=== PATIENT | female | born 1950 | race Caucasian/White ===

== ENCOUNTER 2019-11-16 17:39 | Emergency (ER) | payer MEDICARE, SELFPAY ==
[2019-11-16 17:41] VITALS: BP 170/78; PULSE 78; RESP 16; TEMP 36.3; O2SAT 96; BMI 30.7
--- NOTE | 2019-11-16 17:58 | EKG12_ITS ---
Test Reason : BACK PAIN Blood Pressure : / mmHG Vent. Rate : 068 BPM Atrial Rate : 068 BPM P-R Int : 174 ms QRS Dur : 082 ms QT Int : 408 ms P-R-T Axes : 056 -08 028 degrees QTc Int : 433 ms Normal sinus rhythm Normal ECG Confirmed by CHAPIN VEGA ([id number]), visual effects editor PAO KIRKLAND ([id number]) on 11/19/2019 2:51:26 PM Referred By: ANNMARIE Confirmed By:CHAPIN VEGA
--- NOTE | 2019-11-16 17:59 | ED.VIS.GEN ---
History of Present Illness Chief Complaint: Back Informant: Patient Onset: Days Context: Gradual Onset Timing: Intermittent Narrative: Patient is a 69-year-old female status post cholecystectomy presenting with vague lower back pain. Patient states she has bilateral lower flank pain that initially started 3 days ago. She noticed it when she was lying down to sleep. Over the past 2 nights it woke her up from sleep. She describes it more as a dull ache. She states it does not radiate. She never had pain like this before. She notes that she is had some discomfort with eating but denies any nausea or vomiting. Her bowel movements been normal. She denies any new physical activities or strains to her back. She states she does have a history of sciatica of the right leg but this feels very different. She denies any urinary symptoms. She denies any bowel or bladder incontinence or saddle anesthesia. She denies any fever or chills. She does not take anything for the pain. Patient is concerned she might have diverticulitis or something wrong with her kidneys which is why she came to the emergency room today. Past Medical History - Allergies and Home Meds Allergies/Adverse Reactions: Allergies Penicillins [PCN] Allergy (Verified 11/16/19 17:40) Hives Sulfa (Sulfonamide Antibiotics) Allergy (Verified 11/16/19 17:40) Aliay Primary Care Physician: Champ Elizalde [Primary Care Provider] - Past Medical History: - - Sciatica Surgical History: cholecystectomy Smoking Status: Never smoker Review of Systems General: Denies: Chills, Fever, Sweats Eyes: Denies: Visual changes - bilaterally, Diplopia ENT: Denies: Rhinorrhea, Sore throat Cardiovascular: Denies: Chest pain, Palpitations Respiratory: Denies: Dyspnea, Cough, Dyspnea on exertion Gastrointestinal: Denies: Abdominal pain, Nausea, Vomiting, Diarrhea, Melena, Hematochezia Genitourinary: Denies: Dysuria, Hematuria, Frequency Musculoskeletal: Reports: Back pain. Denies: Extremity Pain Skin: Denies: Rash, Wounds Neurological: Denies: Headache, Weakness, Numbness Physical Exam Vital Signs/Narrative: Vital Signs Temp Pulse Resp BP Pulse Ox 11/16/19 17:41 97.3 F L 78 16 170/78 H 96 Inital Vital Signs reviewed: Yes General: Well nourished, Well developed, No Acute Distress Head: Normocephalic, Atraumatic Eyes: Perrl, EOMI ENT: Moist mucous membranes, No rhinorrhea Neck: Supple, Nontender Cardiovascular: Regular rate, Regular rhythm, No murmurs Respiratory: No distress, CTA bilaterally, Chest nontender Abdomen: Soft, Nondistended, Normal bowel sounds, Tender - Right upper quadrant. Negative for: Guarding, Rebound tenderness Back: Nontender, Normal Inspection, - - Tenderness palpation bilateral flanks, below the CVA area. Negative straight leg test bilaterally. Negative for: CVA tenderness, Spinal tenderness Extremities: Nontender, No edema. Negative for: Tenderness, Edema Skin: Normal color, No rash Neurological: Alert, Oriented x3, Cranial nerves II-XII grossly intact, Normal Strength, Normal Sensation Psychological: Normal affect, Normal Mood Diagnostic/Tx/Re-eval Clinical Impression(s) from Imaging Studies Abdomen/Pelvis CT 11/16/19 18:34 IMPRESSION: Minor diverticular changes of the descending and sigmoid colon without evidence for acute diverticulitis Postop changes status post cholecystectomy No acute abnormalities Electronically Signed: Julian Villegas MD at 19:32 EDT , Service support , Laboratory Data 11/16/19 11/16/19 11/16/19 18:05 18:05 18:10 WBC 9.4 RBC 4.82 Hgb 13.5 Hct 40.6 MCV 84.2 MCH 28.0 MCHC 33.3 RDW Std Deviation 37.4 RDW Coeff of Meng 12.4 Plt Count 233 MPV 10.5 Immature Gran % (Auto) 0.300 Neut % (Auto) 66.4 Lymph % (Auto) 21.8 [place] % (Auto) 8.4 Eos % (Auto) 2.3 Baso % (Auto) 0.8 Absolute Neuts (auto) 6.3 Absolute Lymphs (auto) 2.06 Nucleated RBC % 0 Sodium 141 Potassium 3.9 Chloride 109 H Carbon Dioxide 27.0 Anion Gap 5 BUN 23 H Creatinine 0.97 Estim Creat Clear Calc 51.24 Est GFR (MDRD) Af Amer 73 Est GFR (MDRD) Non-Af 60 BUN/Creatinine Ratio 23.6 H Glucose 137 H Calcium 8.8 Total Bilirubin 0.50 AST 8 L ALT 27 Alkaline Phosphatase 71 Troponin I < 0.015 Total Protein 7.2 Albumin 3.8 Globulin 3.4 Albumin/Globulin Ratio 1.1 Lipase 83 Urine Color Straw Urine Clarity Clear Urine pH 6.0 Ur Specific [place] 1.010 Urine Protein Negative Urine Glucose (UA) Normal Urine Ketones Negative Urine Occult Blood Negative Urine Nitrite Negative Urine Bilirubin Negative Urine Urobilinogen Normal Ur Leukocyte Esterase 500 H Urine RBC 0 SEEN Urine WBC 0-5 SEEN Ur Squamous Epith Cells 0 SEEN Urine Bacteria 0 SEEN Urine Mucus 0 SEEN - Rhythm Strip Rhythm Strip: Sinus Rhythm Rate: 68 Ectopy: None - EKG Initial EKG Interpretation: Sinus Rhythm, - - Normal sinus rhythm at a rate of 68 Normal axis Normal intervals Normal ST segments - Medical Decision Making Patient is evaluated for 3 days of bilateral lower back pain that is been worsening. Patient is hemodynamically stable. Her pain does not seem to be muscle skeletal on exam. She does have some mild tenderness in her right upper quadrant on physical exam. No significant suprapubic tenderness. Urinalysis shows 500 leukoesterase with 0-5 white blood cells. No bacteria seen. Patient does not have any significant abnormalities of her troponin, lipase or CMP. Her CBC is normal. CT of the abdomen and pelvis shows diverticular changes of the descending and sigmoid colon without acute diverticulitis. No other acute process is seen including abnormalities of the kidneys. Urine culture sent. Patient will be treated empirically with Keflex for UTI. Especially given that she has lower back pain associated with the urine findings. She is instructed to follow-up with her primary care provider. I think she stable for outpatient follow-up. Patient is counseled on signs and symptoms requiring return to the emergency room. Patient verbalizes agreement and understand this plan. Patient discharged home in stable and improved condition. ED Disposition - Plan for ED Patient: Disposition: Home or Assisted Living Diagnosis: Low back pain, UTI (urinary tract infection) Instructions: ED Flank Pain Uncertain Cause, ED CYSTITIS Female Adult Prescriptions: Cephalexin [Keflex] 500 mg PO BID #10 cap Transmission Status: Received by [facility]/pharmacy #[id number] Referrals: Champ Elizalde [Primary Care Provider] - Additional Instructions: Urine culture is pending. Your urinalysis does look consistent with UTI today. No other acute process was found today. It is possible this back pain to be associate with a UTI or just muscle skeletal pain. Please alternate Tylenol and ibuprofen as needed for discomfort. Follow-up with your primary care doctor in the next week especially if not have any improvement of your symptoms.
[2019-11-16 18:20] LABS: Bacteria 0 SEEN /hpf (None Seen); Mucous, Urine 0 SEEN /hpf (<or=2+); Red Blood Cells-Urine 0 SEEN /hpf (0-5); Squamous Epithelial Cells - UA 0 SEEN /hpf (5-10)
[2019-11-16 18:21] LABS: Absolute Lymphocyte Count 2.06 X10^3/uL (0.83-4.51); Absolute Neutrophil Count 6.3 X10^3/uL (2.0-7.7); Basophil# 0.08 X10^3/uL; Basophil% 0.8 % (0-1); Eosinophil# 0.22 X10^3/uL; Eosinophils% 2.3 % (0-5); Hematocrit 40.6 % (37-47); Hemoglobin 13.5 g/dL (12.0-15.0); Lymphocyte # 2.06 X10^3/ul (4.0); Lymphocyte % 21.8 % (19-41); Mean Corp Hgb Conc 33.3 g/dL (32-36); Mean Corpuscular Volume 84.2 fL (81-99); Mean Platelet Vol. 10.5 fl (6.2-12.0); Monocyte# 0.79 X10^3/uL; Monocyte% 8.4 % (0-10); NRBC Flagged by Analyzer 0 % (0-5); Neutrophil # 6.25 X10^3/uL (2.7-7.7); Neutrophil % 66.4 % (47-70); Platelet Count 233 K/mm3 (150-450); RBC Distribution Width CV 12.4 % (11.6-14.6); RBC Distribution Width SD 37.4 fl (35.1-43.9); Red Blood Count 4.82 M/mm3 (4.2-5.4); White Blood Count 9.4 K/mm3 (4.4-11.0)
[2019-11-16 18:26] LABS: Color, Urine Straw (Yellow); Glucose, Dipstick Normal (Normal); Ketone-Dipstick Negative (Negative); Leukocyte Esterase-Dipstick 500 /ul (Negative); Nitrite-Dipstick Negative (Negative); Occult Blood-Urine Negative /ul (Negative); Protein-Dipstick Negative (Negative); Urine Bilirubin Dipstick Negative (Negative); Urine Clarity Clear (Clear); Urine Urobilinogen Normal (Normal)
[2019-11-16 18:32] LABS: White Blood Cells 0-5 SEEN /hpf (0-5)
--- NOTE | 2019-11-16 18:34 | CT_ITS ---
STUDY: CT ABDOMEN AND PELVIS WITHOUT CONTRAST REASON FOR EXAM: Female, 69 years old. B/L FLANK/ BACK PAIN X 3 DAYS. RADIATION DOSAGE (If Supplied By Facility): CTDIvol = ( 15.095 ) mGy, DLP = ( 1010.28 ) mGycm TECHNIQUE: Transaxial images were obtained from the dome of the diaphragm to the symphysis pubis without oral contrast, and without intravenous contrast. Sagittal and coronal images were reconstructed. Individualized dose optimization techniques were used for this CT. COMPARISON: None. FINDINGS: There is minor interstitial thickening at the lung bases.. The visualized portions of the heart are within normal limits. Normal liver. Gallbladder not visualized consistent with cholecystectomy Normal spleen. Normal pancreas. Normal bilateral adrenal glands. Normal right kidney. Normal left kidney. Normal visualized stomach. Normal small intestine. Minor diverticular changes of the descending and sigmoid colon without evidence for acute diverticulitis. No evidence for acute appendicitis. Minor atherosclerotic changes of the aorta without evidence for aneurysm Normal inferior vena cava. Normal retroperitoneum. Incompletely distended thick-walled bladder likely of no significance. Normal abdominal wall. Lumbar spine demonstrates degenerative change. Grade 1 sp[address]olisthesis at L5-S1. CT/Abdomen/Pelvis W IV Cont ONLY IMPRESSION: Minor diverticular changes of the descending and sigmoid colon without evidence for acute diverticulitis Postop changes status post cholecystectomy No acute abnormalities Electronically Signed: Julian Villegas MD at 19:32 EDT , Service support ,
[2019-11-16 18:37] LABS: ALB/GLOB Ratio 1.1 RATIO (0.9-2.4); AST(SGOT) 8 U/L (15-37); Alanine Aminotransfer ALT/SGPT 27 U/L (13-56); Albumin, Serum 3.8 g/dL (3.2-5.0); Alkaline Phosphatase 71 U/L (45-117); Anion Gap 5 (5-15); BUN 23 mg/dL (7-18); BUN/Creat Ratio 23.6 RATIO (10-20); Calcium,Total 8.8 mg/dL (8.5-10.1); Chloride 109 mmol/L (98-107); Creatinine, Serum 0.97 mg/dL (0.55-1.02); EST Glomerular Filtration Rate 60 mL/min (>60); Est Glom Filt Rate - Afr Amer 73 mL/min (>60); Estimated Creatinine Clearance 51.24 ml/min; Globulin 3.4 g/dL (2.2-4.2); Glucose 137 mg/dL (74-106); Lipase 83 U/L (73-393); Potassium 3.9 mmol/L (3.5-5.1); Protein, Total 7.2 g/dL (6.4-8.2); Sodium Level 141 mmol/L (136-145)
[2019-11-16] MEDS: Cephalexin 250 MG Capsule 500 MG PO (20:15)
[2019-11-16 20:18] VITALS: BP 158/72; PULSE 80; RESP 16; O2SAT 99
== END 2019-11-16 20:20 | disposition home or self-care (01) ==
PROVIDERS: Emergency Provider Emergency Medicine; PCP Student in an Organized Health Care Education/Training Program
DX: N39.0 Urinary tract infection, site not specified (principal); M54.5 Low back pain
CPT/HCPCS: 74177; 80053; 81001; 83690; 84484; 85025; 87086; 87088; 93005; 99285; Q9967; A4216